=== PATIENT | female | born 1965 | race Two or more races ===

== ENCOUNTER 2018-12-05 13:00 | Outpatient (RCR) | payer BC | END 2018-12-08 | LOC: PT 13:00 | PROVIDERS: ATTEND Specialist | DX: M22.42 Chondromalacia patellae, left knee (principal) ==

== ENCOUNTER 2018-12-24 14:00 | Outpatient (RCR) | payer BC | END 2019-01-08 | LOC: PT 14:00 | PROVIDERS: ATTEND Specialist | DX: M22.42 Chondromalacia patellae, left knee (principal) ==